=== PATIENT | female | born 1990 | race Caucasian/White ===

== ENCOUNTER 2020-02-03 10:56 | Emergency (ER) | payer OTHER, SELFPAY ==
--- NOTE | 2020-02-03 11:10 | ED.GENADULT ---
HPI - General Adult General Chief complaint: Upper Respiratory Infection Stated complaint: Fever/sore throat/stuffy nose/chills/nausea Time Seen by Provider: 02/03/20 11:26 Source: patient Mode of arrival: ambulatory Limitations: no limitations History of Present Illness HPI narrative: 29-year-old female patient presents to the [facility] with complaints of cold symptoms that started yesterday. Patient states that she did get a flu shot this year. Patient denies or breast-feeding at this time. Patient states she has had fevers as high as 103, runny nose, stuffy nose, sore throat, cough. Patient complains of body aches and chills. Patient states she has been taking [id number] Robitussin and Tylenol for her symptoms. Related Data Allergies Allergy/AdvReac Type Severity Reaction Status Date / Time No Known Allergies Allergy Verified 02/03/20 11:30 Review of Systems Review of Systems: Narrative: CONSTITUTIONAL: Positive fever, chills, and sweats. EYES: Denies visual changes, redness, or discharge. ENT: Positive rhinorrhea, congestion, sore throat, denies otalgia. CARDIOVASCULAR: Denies chest pain, palpitations, or edema. RESPIRATORY: Positive cough, denies dyspnea. GASTROINTESTINAL: Denies abdominal pain, nausea, vomiting, or diarrhea. GENITOURINARY: Denies dysuria or hematuria. SKIN: Denies rash or itching. MUSCULOSKELETAL: Denies back pain, joint pain, or myalgia. NEUROLOGIC: Positive headache, denies numbness, or weakness. PSYCHIATRIC: Denies anxiety or depression. [facility] Past Medical History Medical History Gestational hypertension Surgical History Surgical History H/O section H/O myringotomy Hx of tonsillectomy Social History Social History Smoking status: Never smoker Gender identity (if verbalized by the patient): Female Comments At the time of my signature I agree with nursing past medical history, surgical, social, and family history. There is no relevant family history pertinent to the presenting complaint. Exam Narrative: Exam Narrative: GENERAL: Well-appearing, well-nourished, and in no acute distress. HEAD: Normocephalic, atraumatic. No tenderness noted to frontal maxillary sinuses on palpation EYES: PERRLA and EOMI. ENT: Nares with erythema and edema noted bilaterally, no rhinorrhea or epistaxis. Mucous membranes moist. Posterior pharynx with no erythema, tonsillar margin, exudates or lesions present. Bilateral TMs with fluid noted behind the TM but no erythema or foreign bodies in the canal. NECK: Supple. No lymphadenopathy CHEST: Clear to auscultation. No respiratory distress. HEART: Regular rate and rhythm. No murmur heard. Normal peripheral pulses. ABDOMEN: Soft, nontender, nondistended, normal active bowel sounds. EXTREMITIES: Normal range of motion. No edema. SKIN: Warm, dry, no rash. NEURO: No focal deficits. Alert and oriented x3. Course Reevaluation(s) Reevaluation #1: Notified mother that since her son is positive for influenza B today most likely she is too. Discussed with her that she is within the timeframe to receive antivirals if she would like. Discussed with her the pros and cons of antivirals as well as the side effects and she states that she would like to go ahead and try antivirals today. Discussed with patient that otherwise she needs to treat herself with [id number] Tylenol, ibuprofen, increase her fluids and plenty rest. I will take her off of work for minimum of 5 days and that when she is fever free for 24 hours she can go back to work and resume her normal activities. Patient verbalized understanding denies any other questions or concerns at this time. Date: 02/03/20 Time: 11:53 Vital Signs Vital signs: Vital Signs Temperature 36.8 C 02/03/20 11:19 Pulse Rate 97
[2020-02-03 11:19] VITALS: BP 106/67; PULSE 97; RESP 16; TEMP 36.8
== END 2020-02-03 11:55 | disposition home or self-care (01) ==
PROVIDERS: Emergency Provider Nurse Practitioner Family; PCP Family Medicine
DX: J06.9 Acute upper respiratory infection, unspecified (principal); R05 Cough
CPT/HCPCS: 87081; 87880; 99213; G0463

== ENCOUNTER 2024-08-23 17:43 | Observation (INO) | payer BC, SELFPAY ==
--- NOTE | ~2024-08-23 | CT_ITS ---
EXAMINATION: CT brain wo con DATE: 08/23/2024 22:08 INDICATION: Dizziness. Vision changes. TECHNIQUE: Computed tomography (CT) of the head was performed without intravenous contrast. Sagittal and coronal reconstructions were performed. The mA was adjusted according to patient size. Iterative reconstruction technique was employed. The dose-length product was 605.33 mGy-cm. COMPARISON: None FINDINGS: No acute intracranial hemorrhage, acute infarction or abnormal extra axial fluid collection. Ventricl es are normal and symmetric. There is an empty sella with the pituitary flattened along the floor o f the sella which appears mildly expanded. No mass/mass effect. The orbits, paranasal sinuses and mas toid air cells are normal. IMPRESSION: 1. Empty sella with pituitary flattened along the floor of the mildly expanded appearing sella whic h can be seen in setting of idiopathic intracranial hypertension. Otherwise unremarkable head CT. Reviewed, dictated and finalized at location A. IMPRESSION: 1. Empty sella with pituitary flattened along the floor of the mildly expande d appearing sella which can be seen in setting of idiopathic intracranial hyper tension. Otherwise unremarkable head CT.
--- NOTE | ~2024-08-23 | XR_ITS ---
EXAMINATION: XR lumbar puncture diagnostic DATE: 08/26/2024 11:50 INDICATION: Empty sella with headaches, dizziness and vision changes TECHNIQUE: The procedure including the risks and benefits was discussed with the patient. Risks discu ssed included spinal headache, cerebrospinal fluid leak, bleeding, and infection. The patient underst ood the risks and agreed to proceed. A timeout was performed to verify the patient's name, date of , and procedure to be performed. The skin overlying the L4-L5 level was prepped and draped in usual sterile fashion. Subcutaneous 1% lidocaine was used for local anesthesia. A 20 gauge spinal n eedle was advanced under fluoroscopic guidance. The needle was removed and the entry site was cleaned and dressed. There were no immediate complications. A single fluoroscopic image and one crosstable lateral radiograph were obtained. The amount of fluoroscopy time used during this procedure was 0.3 m inutes. Total DAP was 2.198 Gycm^2 The patient was taken to the nursing area for observation. FINDINGS: Real-time fluoroscopy demonstrates the needle at the L4-L5 level. Opening pressure was 40 c m water. (Normal range is variably defined as 6-20 cm water and up to 25 cm water in obese patients. Pressure >25 cm water is one of the modified Dandy criteria for idiopathic intracranial hypertension) . 14.5 mL of clear, colorless fluid was collected in 4 tubes. Closing pressure was 30 cm water. IMPRESSION: 1. Successful fluoro-guided lumbar puncture with elevated opening pressure of 40 cm water. Reviewed, dictated and finalized at location A. IMPRESSION: 1. Successful fluoro-guided lumbar puncture with elevated opening pressure of 4 0 cm water.
--- NOTE | ~2024-08-23 | MR_ITS ---
EXAMINATION: MR brain/brain stem wo/w con DATE: 08/24/2024 07:04 INDICATION: Is empty sella diagnosis. TECHNIQUE: Magnetic resonance imaging (MRI) of the brain and brainstem was performed without and with 20 mL Multihance intravenous contrast. Whole-brain sequences included sagittal T1-weighted FSE, axia l diffusion-weighted FS EPI, axial T2*-weighted GRE, axial T2-weighted FLAIR Propeller, and axial T2- weighted Propeller. Small poyzb-db-bmbz sequences included sagittal and coronal T1-weighted FSE cente red at the pituitary. Postcontrast sequences included small gqrcs-zq-rysw coronal T1-weighted FSE in a time course and sagittal T1-weighted FSE and whole-brain axial T1-weighted FSE. Apparent diffusion coefficient (ADC) maps were created. . COMPARISON: Head CT dated 08/23/2024 FINDINGS: There are no areas of restricted diffusion to suggest acute infarction. No intracranial hemorrhage or abnormal intracranial mass lesion. There are couple tiny foci of nonspecific increased T2-weighted s ignal intensity in the periventricular right frontal lobe white matter which is within normal limits for age. There are no intraparenchymal signal abnormalities seen on the other pulse sequences. The ve ntricles are symmetric and normal in size. There are no abnormal extra-axial fluid collections. Again seen is a empty sella with concave cephalad margin to the pituitary which is flattened along the f walker of the sella measuring 2.5 mm in craniocaudal thickness. No pituitary nodules or significant dev iation of the pituitary stalk. Flow voids are seen in the cerebral arteries on the T2-weighted sequen el consistent with their expected patency. Visualized orbits and soft tissues are unremarkable. Ther e are no areas of abnormal enhancement on the post contrast images. IMPRESSION: 1. Empty sella with pituitary flattened along the floor of the sella. Otherwise unremarkable brain MRI. Reviewed, dictated and finalized at location A. IMPRESSION: 1. Empty sella with pituitary flattened along the floor of the sella. Otherwi se unremarkable brain MRI.
[2024-08-23 17:45] VITALS: BP 153/74; PULSE 74; RESP 16; TEMP 36.4; O2SAT 100
--- NOTE | 2024-08-23 19:48 | ECG_ITS ---
Test Date: 2024-08-23 21:27:07 Measurements Intervals Deal Rate: 72 P: 17 MN: 164 QRS: 0 QRSD: 79 T: -1 QT: 398 QTc: 436 Interpretive Statements SINUS RHYTHM LOW QRS VOLTAGE IN PRECORDIAL LEADS CONSIDER INFERIOR INFARCT, AGE INDETERMINATE ABNORMAL ECG No previous ECG available for comparison Electronically Signed On 08-24-2024 06:20:22 CDT by Angelo Alvarado D.O.
--- NOTE | 2024-08-23 19:51 | ED.DIZZY ---
HPI - Dizziness General Chief Complaint: Dizziness Stated Complaint: Blurry vision, Dizziness Time Seen by Provider: 08/23/24 19:20 Source: patient and family Mode of arrival: ambulatory Limitations: no limitations History of Present Illness HPI Narrative: Patient is a 34-year-old female who presents to the ER with complaints of blurry vision and headache that started this morning. She endorses feeling lightheaded and dizzy intermittently throughout the day. Patient also reports she felt as though her arms were floating. She denies shortness of breath, chest pain, lower extremity swelling, signs of illness. Patient reports the only medication she takes on a daily basis is control. She reports her periods are usually very normal on control, but she took antibiotics this past summer and is wondering if she is . Patient reports she has not had a period since April and has not taken any at home test. Related Data Allergies Allergy/AdvReac Type Severity Reaction Status Date / Time No Known Allergies Allergy Verified 02/03/20 11:30 Review of Systems Review of Systems: All systems reviewed & are unremarkable except as noted in HPI and below PMFSH Past Medical History Medical History (Updated 08/24/24 @ 00:44 by Leslie Rojas APRN) Gestational hypertension Surgical History Surgical History H/O section H/O myringotomy Hx of tonsillectomy Social History Social History Smoking status: Never smoker Gender identity (if verbalized by the patient): Female Exam Narrative: GENERAL: Well appearing, obese, non-toxic, in no acute distress. HEAD: Normocephalic, atraumatic. NECK: Supple. No adenopathy, no masses. RESPIRATORY: Airway patent, respirations nonlabored. Clear to auscultation bilaterally, no rales, rhonchi, wheezing. CARDIOVASCULAR: Regular rate and rhythm without murmurs, rubs, or gallops. Peripheral pulses 2+ and equal bilaterally. ABDOMINAL: Soft, nontender, nondistended, no hepatosplenomegaly. Normoactive BS. MUSCULOSKELETAL: Moves all extremities. Strength/ROM intact without gross deformities. SKIN: Warm, dry, normal color. No rashes. NEURO: A&O X3. Speech clear. Cranial nerves II-XII grossly intact. No ataxic movements. PSYCHIATRIC: Appropriate mood and affect. Normal interaction. Course Vital Signs Vital signs: Vital Signs Temperature 36.4 C 08/23/24 17:45 Pulse Rate 74 08/23/24 17:45 Respiratory Rate 16 08/23/24 17:45 Blood Pressure 153/74 H 08/23/24 17:45 Pulse Oximetry 100 08/23/24 17:45 Oxygen Delivery Room Air 08/23/24 17:45 Temperature 36.4 C 08/23/24 17:45 Pulse Rate 71 08/23/24 22:43 Respiratory Rate 15 08/23/24 22:43 Blood Pressure 116/69 08/23/24 22:43 Pulse Oximetry 100 08/23/24 22:43 Oxygen Delivery Room Air 08/23/24 17:45 MDM - Dizziness MDM Narrative Medical decision making narrative: Patient is a 34-year-old female who presents to the ER with complaints of blurry vision and headache that started this morning. She endorses feeling lightheaded and dizzy intermittently throughout the day. Patient also reports she felt as though her arms were floating. She denies shortness of breath, chest pain, lower extremity swelling, signs of illness. Patient reports the only medication she takes on a daily basis is control. She reports her periods are usually very normal on control, but she took antibiotics this past summer and is wondering if she is . Patient reports she has not had a period since April and has not taken any at home test. Patient's brain CT scan showed empty sella with pituitary flattened along the floor of the mildly expanded appearing sella which can be seen in setting of idiopathic intracranial hypertension. Otherwise unremarka
[2024-08-23] MEDS: SODIUM CHLORIDE 0.9% IV 1,000 ML 999 ML IV CONT (20:22)
[2024-08-23 20:40] LABS: Basophils Absolute Auto 0.1 K/mm3 (0.0-0.1); Basophils Percent Auto 0.6 % (0.2-1.2); Eosinophils Absolute Auto 0.2 K/mm3 (0-0.3); Eosinophils Percent Auto 2.2 % (0-4.4); Hematocrit 40.6 % (37.0-47.0); Hemoglobin 13.3 g/dL (12.0-15.0); Immature Granulocyte Absolute 0.03 K/mm3 (0.00-0.031); Immature Granulocyte Percent A 0.3 % (0-0.5); Lymphocytes Absolute Auto 2.79 K/mm3 (0.9-3.2); Lymphocytes Percent Auto 28.9 % (18.3-44.2); Mean Corpuscular HGB Conc 32.8 g/dl (32-36); Mean Corpuscular Hemoglobin 29.4 pg (26-34); Mean Corpuscular Volume 89.8 fl (80-100); Mean Platelet Volume 10.6 fl (7.4-10.4); Monocytes Absolute Auto 0.6 K/mm3 (0.1-0.6); Monocytes Percent Auto 6.5 % (2.6-8.5); Neutrophils Percent Auto 61.5 % (45.5-73.1); Platelet Count Result 262 k/mm3 (150-375); Red Blood Count 4.52 M/mm3 (4.2-5.4); Red Cell Distribution Width 13.6 % (11.5-14.5); White Blood Count 9.7 K/mm3 (4.5-10.0)
[2024-08-23 20:48] LABS: Add Urine Microscopic? YES; Appearance Urine Cloudy (Clear); Bacteria Urine 1+ /hpf; Bilirubin Urine Negative (Negative); Blood Urine Negative (Negative); Color Urine Yellow (Yellow); Glucose Urine UA Negative (Negative); Ketones Urine Negative (Negative); Leukocyte Esterase Ur Negative LEU/UL (Negative); Nitrate Urine Negative (Negative); Non Pathogenic Casts 0-2; Protein Urine Negative (Negative); RBC Urine 0-2 /hpf (0-2); Specific Grav Ur 1.017 (1.001-1.035); Squamous Epithelial Cell Urine Moderate /hpf (Few); WBC Urine 0-5 /hpf (0-3); pH Urine 7.5 (5.0-9.0)
[2024-08-23 20:53] LABS: INR 0.9; Partial Thromboplastin Time 25.1 Seconds (22.3-36.8); Prothrombin Time 12.8 Seconds (11.1-14.7)
[2024-08-23 20:59] LABS: D Dimer < 0.27 ug/mL (<0.48)
[2024-08-23 21:02] LABS: Lactic Acid Reflex 1.2 mmol/L (0.7-2.0)
[2024-08-23 21:10] LABS: Troponin I 0.018 ng/mL (0.000-0.034)
[2024-08-23 21:23] LABS: Influenza A QL RT-PCR Negative (Negative); Influenza B QL RT-PCR Negative (Negative); RSV RNA, RT-PCR Negative (Negative); SARS-CoV-2 RNA PCR Negative (Negative)
[2024-08-23 21:24] LABS: Beta HCG Quantitative < 2.39 mIU/ML
[2024-08-23 22:02] LABS: Alanine Aminotransferase 23 U/L (6-35); Albumin Level 4.1 g/dL (3.5-5.1); Alkaline Phosphatase 89 U/L (38-126); Anion Gap 8 mmol/L (4-12); Aspartate Amino Transferase 23 U/L (14-36); Bilirubin,Total 0.6 mg/dL (0.2-1.3); Blood Urea Nitrogen 12 mg/dL (7-17); Calcium 8.3 mg/dL (8.4-10.2); Carbon Dioxide 27 mmol/L (22-30); Chloride 98 mmol/L (98-107); Estimated Glomerular Filt Rate > 60; Glucose 82 mg/dL (65-110); Magnesium 1.9 mg/dL (1.6-2.3); Potassium 3.7 mmol/L (3.4-5.0); Sodium 133 mmol/L (137-145)
[2024-08-23 22:43] VITALS: BP 116/69; PULSE 71; RESP 15; O2SAT 100
--- NOTE | 2024-08-24 00:08 | PM.IMHP ---
H&P: HPI History of Present Illness Date/Time: 08/24/24 00:08 Chief Complaint: HEADACHE Narrative: This is a 34-year-old female with past medical history significant for morbid obesity. Patient presents to the emergency room due to headache and blurry vision, no nausea, no vomiting, no fevers no rigors no chills no cough no sputum production no abdominal pain no diarrhea. Patient has been in her usual state of health up until this point. Preliminary workup was significant for CT of the head with empty sella syndrome. patient has been placed in observation for further evaluation management and treatment. EXAMINATION: CT brain wo con DATE: 08/23/2024 22:08 INDICATION: Dizziness. Vision changes. TECHNIQUE: Computed tomography (CT) of the head was performed without intravenous contrast. Sagittal and coronal reconstructions were performed. The mA was adjusted according to patient size. Iterative reconstruction technique was employed. The dose-length product was 605.33 mGy-cm. COMPARISON: None FINDINGS: No acute intracranial hemorrhage, acute infarction or abnormal extra axial fluid collection. Ventricles are normal and symmetric. There is an empty sella with the pituitary flattened along the floor of the sella which appears mildly expanded. No mass/mass effect. The orbits, paranasal sinuses and mastoid air cells are normal. IMPRESSION: 1. Empty sella with pituitary flattened along the floor of the mildly expanded appearing sella which can be seen in setting of idiopathic intracranial hypertension. Otherwise unremarkable head CT. Review of Systems Review of Systems: HEADACHE [facility] Past Medical History Medical History (Updated 08/24/24 @ 03:37 by Adore Sosa MD) Gestational hypertension Surgical History Surgical History H/O section H/O myringotomy Hx of tonsillectomy Family History Family History (Updated 08/24/24 @ 01:50 by Cary Jones RN) Other Acute myocardial infarction Cancer Cerebrovascular accident Congestive heart failure Diabetes mellitus Hypertension Social History Social History Smoking status: Never smoker Do You Feel Safe in your Home?: Yes Lack of Transportation: No Lack of Food: Never True Current Housing: I Have Housing Concerned About Future Housing: No Difficulty Paying Gas/Electric Bills: No Difficulty Paying for Meds: No Currently Unemployed: No Education: High School Diploma/GED Difficulty w/ Childcare or Family Care: No Gender identity (if verbalized by the patient): Female Spiritual care concerns: No Meds Home Medications and Allergies Home Medications Medication Instructions Recorded Confirmed Type desogestrel-ethinyl estradiol 0.1 1 tablet PO DAILY 08/24/24 08/24/24 History mg/0.125 mg/0.15 mg-25 mcg tablet Allergies Allergy/AdvReac Type Severity Reaction Status Date / Time No Known Allergies Allergy Verified 08/24/24 01:52 Vital Signs Vital Signs - 24 hr 08/23/24 17:45 08/23/24 22:43 Temperature 97.6 F Pulse Rate 74 71 Respiratory Rate 16 15 Blood Pressure 153/74 H 116/69 Pulse Oximetry 100 100 Oxygen Delivery Room Air Exam Narrative: PATIENT IS SITTING IN A STRETCHER Const: General: comfortable, no acute distress, well developed, alert, awake and obese Nutritional Appearance: obese morbidly obese Orientation/consciousness: patient oriented x3 HENMT: Head: normal to inspection, normocephalic and atraumatic Ears: hearing grossly normal bilaterally Face/Nose/Sinus: normal facial exam Face and sinus: normal facial exam Eyes: General: appearance normal, both eyes and all related structures Pupils: Equal, round and reactive pupils present EOM: EOMs intact bilaterally Neck: Neck: full ROM, no lymphadenopathy and no JVD Thyroid: thyroid n
[2024-08-24 01:55] VITALS: BP 118/66; PULSE 72; RESP 5; O2SAT 98
--- NOTE | 2024-08-24 02:08 | PC.NURSE ---
RE: med reconciliation: Unable to retreive drug information for [place] 75mcg; non-formulary medication unavailable in [place]. Trade name was entered to identify use of home control with Elliott identified in Rx comment. Dr. Sosa notified via telephone.
[2024-08-24 02:26] VITALS: BP 132/86; PULSE 78; RESP 16; TEMP 36.3; O2SAT 100; BMI 52.9
--- NOTE | 2024-08-24 02:27 | ADMGEN ---
This patient, Leslie Felix, was admitted to 3 [facility] Surg Room 301-01. Patient/family oriented to hospital policies and general routines including ID bracelet, bed and alarms, visiting hours, pain management, procedures, bathroom and other care routines, personal items, smoking policy, room service/diet, and visiting hours. Information on how to activate the Rapid Response Team has been discussed. Patient/Family are encouraged to report perceived risks to care and to ask questions if they do not understand what they are told or what they should do.
[2024-08-24 06:00] VITALS: BP 102/72; PULSE 86; RESP 18; TEMP 36.3; O2SAT 100
--- NOTE | 2024-08-24 09:18 | PM.IMPN ---
Progress Note: A&P Assessment and Plan (1) Empty sella syndrome: Code(s): E23.6 - Other disorders of pituitary gland Status: Acute Assessment and Plan: - admitted for observation - MRI this am - neurology consulted- awaiting recommendations (2) Headache: Code(s): R51.9 - Headache, unspecified Status: Acute Assessment and Plan: - supportive treatment for now (3) Morbid obesity with BMI of 50.0-59.9, adult: Code(s): E66.01 - Morbid (severe) obesity due to excess calories; Z68.43 - Body mass index [BMI] 50.0-59.9, adult Status: Acute Assessment and Plan: LIFESTYLE AND DIET MODIFICATIONS - will need an outpt weight loss f/u to prevent metabolic complications of obesity Time Spent With Patient Time with patient: Greater than 35 minutes Subjective Date/time seen: 08/24/24 09:18 Interval history: 08/24 assuming care. MRI is scheduled for today. Neurology consulted. will check hga1c. Pt reports headache improved with tylenol but still occasional blurred vision. Review of Systems Review of Systems: HEADACHE- impropved with tylenol Exam Narrative: PATIENT IS SITTING IN A STRETCHER Const: General: comfortable, no acute distress, well developed, alert, awake and obese Nutritional Appearance: obese morbidly obese Orientation/consciousness: patient oriented x3 HENMT: Head: normal to inspection, normocephalic and atraumatic Ears: hearing grossly normal bilaterally Face/Nose/Sinus: normal facial exam Face and sinus: normal facial exam Eyes: General: appearance normal, both eyes and all related structures Pupils: Equal, round and reactive pupils present EOM: EOMs intact bilaterally Neck: Neck: full ROM, no lymphadenopathy and no JVD Thyroid: thyroid normal Lymphatic: no lymphadenopathy noted Resp: Effort & Inspection: normal respiratory effort and able to speak in complete sentences Auscultation: clear to auscultation bilaterally Cardio: Jugular venous distension: no JVD Rate: regular rate Rhythm: regular rhythm Heart sounds: S1 normal heart sound present and S2 normal heart sound present : General: Yes deferred Skin: Rashes: no rashes Wounds: no wounds Neuro: General: patient oriented x3 and CN's II-XI intact bilaterally Cranial nerves: Yes CN's II-XII intact bilaterally and Yes Equal, round and reactive pupils present Cognition (Neuro): normal cognition Speech: normal speech Gait exam (Neuro): Normal gait present Motor exam (neuro): 5/5 motor strength present throughout Extrem: General: normal to inspection, full ROM, no joint enlargement and no pedal edema Objective Data Vital Signs Vital Signs: Vital Signs - 24 hr 08/23/24 17:45 08/23/24 22:43 08/24/24 02:26 Temperature 97.6 F 97.3 F L Pulse Rate 74 71 78 Respiratory Rate 16 15 16 Blood Pressure 153/74 H 116/69 132/86 Pulse Oximetry 100 100 100 Oxygen Delivery Room Air 08/24/24 01:55 08/24/24 03:10 08/24/24 06:00 Temperature 97.4 F L Pulse Rate 72 86 Respiratory Rate 5 L 18 Blood Pressure 118/66 102/72 Pulse Oximetry 98 100 Oxygen Delivery Room Air 08/24/24 08:00 Temperature Pulse Rate Respiratory Rate Blood Pressure Pulse Oximetry Oxygen Delivery Room Air Intake/Output Intake/Output: Intake & Output 08/21/24 08/22/24 08/23/24 08/24/24 23:59 23:59 23:59 23:59 Intake Total 1000 600 Balance 1000 600 Meds/Results Medications: Active Medications Generic Name Dose Route Start Last Admin Trade Name Freq PRN Reason Stop Dose Admin Acetaminophen 1,000 mg 08/24/24 03:28 Acetaminophen 500 Mg Tablet PO Q6H PRN Mild Pain (1-3) or Fever Al Hydrox/Mg Hydrox/Simethicone 30 ml 08/24/24 03:28 Mag Hydrox/Al Hydrox/Simeth 30 Ml Udc PO Q6H PRN Indigestion Miscellaneous Information 0 each 08/24/24 00:01 Desogestrel/Ethinyl Estradiol Nonformulary Can Pt Bring From Home? XX 09/23/24 00:00
[2024-08-24] MEDS: ACETAMINOPHEN 500 MG TABLET 1000 MG PO (09:57)
[2024-08-24 14:00] VITALS: BP 124/65; PULSE 87; RESP 16; TEMP 36.1; O2SAT 97
[2024-08-24 19:47] VITALS: BP 118/65; PULSE 97; RESP 18; TEMP 36.3; O2SAT 99
[2024-08-24 20:00] VITALS: PULSE 97; RESP 18; O2SAT 99
--- NOTE | 2024-08-24 20:05 | PHAR ---
CONTROL HOME MED VERIFIED BY PHARMACY ESTARYLLA (NORGESTIMATE AND ETHINYL ESTRADIOL 0.25/0.025 MG)
--- NOTE | 2024-08-24 20:09 | PHAR ---
PT CONTROL HOME MED ESTARYLLA (NORGESTIMATE AND ETHINYL ESTRADIOL 0.25/0.035 MG) TABS VERIFIED BY PHARMACY
[2024-08-24] MEDS: diphenhydrAMINE HCl CAP 25 MG CAPSULE PO (22:34)
[2024-08-25 05:25] VITALS: BP 120/82; PULSE 70; RESP 16; TEMP 36.4; O2SAT 100
[2024-08-25 08:08] LABS: Hemoglobin A1C 5.2 % (<5.7)
--- NOTE | 2024-08-25 09:13 | PM.IMPN ---
Progress Note: A&P Assessment and Plan (1) Empty sella syndrome: Code(s): E23.6 - Other disorders of pituitary gland Status: Acute Assessment and Plan: PLACED IN OBSERVATION MRI OF THE BRAIN NEUROLOGY CONSULT - LP per neurology (2) Headache: Code(s): R51.9 - Headache, unspecified Status: Acute Assessment and Plan: LIKELY SECONDARY TO 1. (3) Morbid obesity with BMI of 50.0-59.9, adult: Code(s): E66.01 - Morbid (severe) obesity due to excess calories; Z68.43 - Body mass index [BMI] 50.0-59.9, adult Status: Acute Assessment and Plan: LIFESTYLE AND DIET MODIFICATIONS - discussed in great details- will need to f/u with PCP and/or obesity specialist- based on her complains may have PCOS- so metfromin would be a good choice for that if diagnosed or for weigh loss as off label treatment Plan dvt prophylaxis: SCD Time Spent With Patient Time with patient: Greater than 35 minutes Subjective Date/time seen: 08/25/24 09:13 Interval history: 08/24 assuming care. MRI is scheduled for today. Neurology consulted. will check hga1c. Pt reports headache improved with tylenol but still occasional blurred vision. 08/25 ha1c- 5.2, tsh wnl. Awaiting neurology recom. Headache is controlled. Review of Systems Review of Systems: HEADACHE- impropved with tylenol Exam Narrative: PATIENT IS SITTING IN A STRETCHER Const: General: comfortable, no acute distress, well developed, alert, awake and obese Nutritional Appearance: obese morbidly obese Orientation/consciousness: patient oriented x3 HENMT: Head: normal to inspection, normocephalic and atraumatic Ears: hearing grossly normal bilaterally Face/Nose/Sinus: normal facial exam Face and sinus: normal facial exam Eyes: General: appearance normal, both eyes and all related structures Pupils: Equal, round and reactive pupils present EOM: EOMs intact bilaterally Neck: Neck: full ROM, no lymphadenopathy and no JVD Thyroid: thyroid normal Lymphatic: no lymphadenopathy noted Resp: Effort & Inspection: normal respiratory effort and able to speak in complete sentences Auscultation: clear to auscultation bilaterally Cardio: Jugular venous distension: no JVD Rate: regular rate Rhythm: regular rhythm Heart sounds: S1 normal heart sound present and S2 normal heart sound present : General: Yes deferred Skin: Rashes: no rashes Wounds: no wounds Neuro: General: patient oriented x3 and CN's II-XI intact bilaterally Cranial nerves: Yes CN's II-XII intact bilaterally and Yes Equal, round and reactive pupils present Cognition (Neuro): normal cognition Speech: normal speech Gait exam (Neuro): Normal gait present Motor exam (neuro): 5/5 motor strength present throughout Extrem: General: normal to inspection, full ROM, no joint enlargement and no pedal edema Objective Data Vital Signs Vital Signs: Vital Signs - 24 hr 08/24/24 14:00 08/24/24 19:47 08/24/24 20:00 Temperature 97.0 F L 97.3 F L Pulse Rate 87 97 97 Respiratory Rate 16 18 18 Blood Pressure 124/65 118/65 Pulse Oximetry 97 99 99 Oxygen Delivery Room Air 08/25/24 05:25 08/25/24 08:00 Temperature 97.6 F Pulse Rate 70 Respiratory Rate 16 Blood Pressure 120/82 Pulse Oximetry 100 Oxygen Delivery Room Air Intake/Output Intake/Output: Intake & Output 08/22/24 08/23/24 08/24/24 08/25/24 23:59 23:59 23:59 23:59 Intake Total 1000 1342 550 Balance 1000 1342 550 Meds/Results Medications: Active Medications Generic Name Dose Route Start Last Admin Trade Name Freq PRN Reason Stop Dose Admin Acetaminophen 1,000 mg 08/24/24 03:28 08/24/24 09:57 Acetaminophen 500 Mg Tablet PO 1,000 mg Q6H PRN Administration Mild Pain (1-3) or Fever Al Hydrox/Mg Hydrox/Simethicone 30 ml 08/24/24 03:28 Mag Hydrox/Al Hydrox/Simeth 30 Ml Udc PO Q6H PRN Indigestion Melatonin 5 mg 08/25/24 21:00 Melato
[2024-08-25] MEDS: ACETAMINOPHEN 500 MG TABLET 1000 MG PO (11:14)
[2024-08-25 14:00] VITALS: BP 110/49; PULSE 74; RESP 18; TEMP 36.4; O2SAT 99
--- NOTE | 2024-08-25 15:50 | WPDNEURCNPN ---
Assessment and Plan Assessment and plan (1) Migraine syndrome: Code(s): G43.909 - Migraine, unspecified, not intractable, without status migrainosus Status: Acute (2) Benign intracranial hypertension: Code(s): G93.2 - Benign intracranial hypertension Status: Acute Assessment and Plan: this remains a possibility at this time and requires further confirmation. Supportive evidence will be increasing headache for last 2 months, exogenous obesity with BMI over 50 and some flattening of the optic disc margins on funduscopy. She will require spinal tap to look for further diagnosis and treatment thereafter. Differential diagnosis will be with the migraine. (3) Morbid obesity with BMI of 50.0-59.9, adult: Code(s): E66.01 - Morbid (severe) obesity due to excess calories; Z68.43 - Body mass index [BMI] 50.0-59.9, adult Status: Acute (4) Empty sella syndrome: Code(s): E23.6 - Other disorders of pituitary gland Status: Acute Plan I would suggest a spinal tap with the checking of the pressure in the left lateral position using a 20 gauge needle and to make a recording of the same. I shall be glad to follow up the results of these and advise further. Consult date: 08/25/24 HPI: Leslie Felix is a 34 year old female Presented to the hospital with blurring of the vision on both sides and increasing headache. She has had headaches for last 2 months and these are progressively getting worse. She used to have headache on and off in the past. Patient has gained a lot of weight in the last few years and a also is on oral contraceptives. Her BMI currently 52.9. The patient states that she has dizziness as well as blurring of the vision. She is right-handed. She does not smoke. No history of trauma or upper respiratory infection. Review of Systems Review of Systems: All systems reviewed & are unremarkable except as noted in HPI and below PMFSH Past Medical History Medical History (Updated 08/25/24 @ 15:54 by Saloni Benedict MD) Benign intracranial hypertension Gestational hypertension Migraine syndrome Surgical History Surgical History H/O section H/O myringotomy Hx of tonsillectomy Family History Family History Other Acute myocardial infarction Cancer Cerebrovascular accident Congestive heart failure Diabetes mellitus Hypertension Social History Social History Smoking status: Never smoker Do You Feel Safe in your Home?: Yes Lack of Transportation: No Lack of Food: Never True Current Housing: I Have Housing Concerned About Future Housing: No Difficulty Paying Gas/Electric Bills: No Difficulty Paying for Meds: No Currently Unemployed: No Education: High School Diploma/GED Difficulty w/ Childcare or Family Care: No Gender identity (if verbalized by the patient): Female Spiritual care concerns: No Meds Home Medications and Allergies Home Medications Medication Instructions Recorded Confirmed Type desogestrel-ethinyl estradiol 0.1 1 tablet PO DAILY 08/24/24 08/24/24 History mg/0.125 mg/0.15 mg-25 mcg tablet Allergies Allergy/AdvReac Type Severity Reaction Status Date / Time No Known Allergies Allergy Verified 08/24/24 01:52 Vital Signs Vital Signs - 24 hr 08/24/24 19:47 08/24/24 20:00 08/25/24 05:25 Temperature 97.3 F L 97.6 F Pulse Rate 97 97 70 Respiratory Rate 18 18 16 Blood Pressure 118/65 120/82 Pulse Oximetry 99 99 100 Oxygen Delivery Room Air 08/25/24 08:00 08/25/24 14:00 Temperature 97.6 F Pulse Rate 74 Respiratory Rate 18 Blood Pressure 110/49 L Pulse Oximetry 99 Oxygen Delivery Room Air Exam Const: General: cooperative, well developed and alert Orientation/consciousness: patient oriented x3
[2024-08-25] MEDS: MELATONIN 5 MG TABLET PO (20:14)
[2024-08-25 20:45] VITALS: BP 118/58; PULSE 81; RESP 20; TEMP 36.4; O2SAT 100
[2024-08-26] MEDS: ACETAMINOPHEN 500 MG TABLET 1000 MG PO ×2 (00:50→09:07)
[2024-08-26 05:11] VITALS: PULSE 64; RESP 20
[2024-08-26 05:40] VITALS: BP 122/83; PULSE 64; RESP 20; TEMP 36.1; O2SAT 100
[2024-08-26] MEDS: SODIUM CHLOR 3% 15 ML NEB (RESPIRATORY THERAPY) 6 ML INHALATION (05:48)
[2024-08-26] MEDS: ONDANSETRON INJ 4 MG/2 ML VIAL IV PUSH ×2 (06:16→12:00)
--- NOTE | 2024-08-26 11:06 | PM.DS ---
DS: Admitting Diagnosis Discharge Date 08/26 Admitting Diagnosis headache, blurred vision DS: Discharge Diagnosis Discharge Diagnosis (1) Empty sella syndrome: Code(s): E23.6 - Other disorders of pituitary gland Status: Acute Assessment and Plan: PLACED IN OBSERVATION MRI OF THE BRAIN NEUROLOGY CONSULT - LP per neurology - ok to be discharged with a close f/u (2) Headache: Code(s): R51.9 - Headache, unspecified Status: Acute Assessment and Plan: LIKELY SECONDARY TO 1. (3) Morbid obesity with BMI of 50.0-59.9, adult: Code(s): E66.01 - Morbid (severe) obesity due to excess calories; Z68.43 - Body mass index [BMI] 50.0-59.9, adult Status: Acute Assessment and Plan: LIFESTYLE AND DIET MODIFICATIONS - discussed in great details- will need to f/u with PCP and/or obesity specialist- based on her complains may have PCOS- so metfromin would be a good choice for that if diagnosed or for weigh loss as off label treatment Plan dvt prophylaxis: SCD DS: Summary Hospital Course Hospital Course: Leslie Felix is a 34 year old female Presented to the hospital with blurring of the vision on both sides and increasing headache. She has had headaches for last 2 months and these are progressively getting worse. She used to have headache on and off in the past. Patient has gained a lot of weight in the last few years and on oral contraceptives. Her BMI currently 52.9. The patient states that she has dizziness as well as blurring of the vision. Headache was relieved with tylenol and occasional nausea with zofran. She had LP done on 08/26 with a f/u with neurology. Status at Discharge Functional status at discharge: independent ambulation Overall status at discharge: patient is back to baseline Time Spent with Patient Time attestation: Total time spent providing and/or coordinating discharge services: Time spent: Greater than 30 minutes Exam Narrative: PATIENT IS SITTING IN A STRETCHER Const: General: comfortable, no acute distress, well developed, alert, awake and obese Nutritional Appearance: obese morbidly obese Orientation/consciousness: patient oriented x3 HENMT: Head: normal to inspection, normocephalic and atraumatic Ears: hearing grossly normal bilaterally Face/Nose/Sinus: normal facial exam Face and sinus: normal facial exam Eyes: General: appearance normal, both eyes and all related structures Pupils: Equal, round and reactive pupils present EOM: EOMs intact bilaterally Neck: Neck: full ROM, no lymphadenopathy and no JVD Thyroid: thyroid normal Resp: Effort & Inspection: normal respiratory effort and able to speak in complete sentences Auscultation: clear to auscultation bilaterally Cardio: Rate: regular rate Rhythm: regular rhythm Heart sounds: S1 normal heart sound present and S2 normal heart sound present : General: Yes deferred Skin: Rashes: no rashes Neuro: General: patient oriented x3 and CN's II-XI intact bilaterally Cranial nerves: Yes CN's II-XII intact bilaterally and Yes Equal, round and reactive pupils present Cognition (Neuro): normal cognition Speech: normal speech Gait exam (Neuro): Normal gait present Motor exam (neuro): 5/5 motor strength present throughout Extrem: General: normal to inspection, full ROM, no joint enlargement and no pedal edema DS: Data Data Completed and Pending Completed studies during hospitalization: Brain MRI, head CT, LP Pending studies at discharge: Pending at discharge 08/25/24 14:53 Cytology [PTH] Routine Labs on day of discharge: Labs from last 24 hours 08/25/24 08/25/24 15:30 15:27 Albumin Pending CSF Albumin (MS) Pending CSF IgG Oligo Bnd (MS) Pending CSF IgG (MS) Pending Serum IgG (MS) Pending CSF IgG Index (MS) Pending CSF IgG Synth Rate MS Pending CSF Myelin Bsc Prot MS Pending CMV DNA Quant PCR Pending CMV DNA Qnt Source Pending CMV Qnt PCR lo
[2024-08-26 11:52] VITALS: BP 140/86; PULSE 77; RESP 16; O2SAT 99
[2024-08-26 11:53] VITALS: BP 120/65; PULSE 62; RESP 16; O2SAT 99
[2024-08-26 12:00] VITALS: BP 113/60; PULSE 63; RESP 16; TEMP 36.1; O2SAT 99
[2024-08-26 12:14] LABS: Glucose CSF 56 mg/dL (40-70); Total Protein CSF 20 mg/dL (12-60)
[2024-08-26 13:27] LABS: Appearance CSF Clear (Clear); CSF source CSF; Color CSF Colorless (Colorless); Nucleated Cell CSF 0 /uL (0-5); Red Blood Cell CSF 58 (0-2)
[2024-08-26 14:00] VITALS: BP 122/64; PULSE 62; RESP 18; TEMP 36.1; O2SAT 99
[2024-08-27 23:23] LABS: CMV DNA Quant PCR IU/mL Not Detected (Not Detected); Cytomegalovirus DNA Quant PCR Not Detected Log IU/mL (Not Detected); Cytomegalovirus DNA Source Plasma
--- NOTE | 2024-08-28 11:52 | PC.NURSE ---
pt called wanting to know who to follow up with concerning her spinal fluid results, I spoke with pt stating those were send out tests and could be several days before results were available, I did advise her to call her primary care physician on Thursday to schedule a follow up appt and to update
[2024-08-29 08:38] LABS: Herpes Simplex Type 1 DNA PCR Not Detected (Not Detected); Herpes Simplex Type 2 DNA PCR Not Detected (Not Detected)
[2024-08-30 10:23] LABS: JC Polyoma Virus DNA, QL NOT DETECTED; JC Polyoma Virus Source PLASMA
[2024-08-30 16:29] LABS: Cryptococcus Antigen NOT DETECTED; Cryptococcus Specimen Source CEREBROSPINAL FLUID
[2024-08-31 08:53] LABS: Source CEREBROSPINAL FLUID
[2024-09-02 07:34] LABS: Epstein Barr Virus DNA PCR Not Detected (Not Detected); Lyme AB IgG, Immunoblot NO BANDS DETECTED; Lyme AB IgM, Immunoblot NO BANDS DETECTED; Source Epstein Barr Virus Results Below
[2024-09-02 07:45] LABS: Immunoglobulin G, Serum 995
[2024-09-02 07:47] LABS: IgG Index, CSF 0.53
[2024-09-02 07:48] LABS: Albumin, CSF 9.4
[2024-09-02 07:49] LABS: IgG, CSF 1.3
[2024-09-02 07:51] LABS: Synthesis Rate IgG, CSF -2.9
[2024-09-02 13:59] LABS: Albumin, Serum 3.8 g/dL (3.6-5.1); Myelin Basic Protein, CSF <2.0 mcg/L (< OR = 4.0); Oligoclonal Bands (IgG), CSF ABSENT (ABSENT)
[2024-09-03 14:13] LABS: West Nile Virus, IgM <0.90 index
[2024-09-03 19:19] LABS: Varicella IgG Antibody 5.09 S/CO
[2024-09-05 15:16] LABS: Cryptococcus Additional Testin Not Indicated
== END 2024-08-26 16:21 | disposition home or self-care (01) ==
LOC: ANHED 08-24 00:44 → ANH3MEDSUR 08-24 02:12
PROVIDERS: Nurse Practitioner; Psychiatry & Neurology Neurology; Admitting Provider Internal Medicine; Emergency Provider Registered Nurse; Visit Provider Family Medicine
DX: E23.6 Other disorders of pituitary gland (principal); G43.909 Migraine, unspecified, not intractable, without status migrainosus; G93.2 Benign intracranial hypertension; R42 Dizziness and giddiness; E66.01 Morbid (severe) obesity due to excess calories; Z68.43 Body mass index [BMI] 50.0-59.9, adult; Z79.899 Other long term (current) drug therapy; Z20.822 Contact with and (suspected) exposure to COVID-19
CPT/HCPCS: 36415; 62328; 70450; 70553; 80053; 81001; 82040; 82042; 82784; 82945; 83036; 83605; 83735; 83873; 83916; 84157; 84443; 84484; 84702; 85025; 85380; 85610; 85730; 86403; 86617; 86787; 86788; 87015; 87070; 87116; 87205; 87206; 87497; 87529; 87637; 87798; 88108; 89051; 93005; 94640; 96360; 96361; 96374; 96375; 96376; 99285; A9270; A9577; G0378; J2405; J7030